=== PATIENT | female | born 1960 | race Caucasian/White ===

== ENCOUNTER 2016-11-30 12:10 | Emergency (ER) | payer OTHER ==
[~2016-11-30] VITALS: Ht 167.6 cm; Wt 60.0 kg
[2016-11-30] MEDS ORDERED: SODIUM CHLORIDE 0.9% 1,000 ML IV ONE (12:54)
[2016-11-30] MEDS ORDERED: LORAZEPAM 0.5MG TABLET PO ONE (13:00)
[2016-11-30 13:20] LABS: BASOPHILS % 0.5 % (0.0-2.0); EOSINOPHILS % 0.2 % (0.0-5.0); HEMATOCRIT. 40.7 % (36.0-48.0); HEMOGLOBIN. 13.7 g/dL (12.0-16.0); LYMPHOCYTES % 13.7 % (20.0-50.0); MEAN CORPUSCULAR HEMOGLOBIN 31.2 pg (28.0-32.0); MEAN CORPUSCULAR HGB CONC 33.6 g/dL (31.0-37.0); MEAN CORPUSCULAR VOLUME 92.8 fL (81.0-99.0); MEAN PLATELET VOLUME 8.4 fl (7.4-10.4); MONOCYTES % 3.3 % (2.0-8.0); NEUTROPHILS % 82.3 % (40.0-76.0); PLATELET 229 x1000/uL (130-400); RED BLOOD CELL COUNT 4.39 mill/uL (4.2-5.4); RED CELL DISTRIBUTION WIDTH 14.4 % (11.6-14.6); WHITE BLOOD COUNT 7.3 x1000/uL (4.5-11.0)
[2016-11-30 13:26] LABS: CHLORIDE 89 mEq/L (98-107); INDEX HEMOLYSI 1 (1-3); INDEX ICTERIC 1 (1-4); INDEX LIPEMIC 1 (1-3)
[2016-11-30 13:27] LABS: PROTHROMBIN TIME 10.6 sec
[2016-11-30 13:35] LABS: ALANINE AMINOTRANSFERASE 38 IU/L (13-61); ALBUMIN 3.3 g/dL (3.4-5.0); ANION GAP 18; CALCIUM 8.3 mg/dL (8.5-10.1); CARBON DIOXIDE 23 mEq/L (21-32); UREA NITROGEN BLOOD 12 mg/dL (7-21); eGFR > 60 mL/min (>60)
[2016-11-30] MEDS ORDERED: POTASSIUM CHLORIDE 40MEQ/30ML UDC PO ONE (14:00)
[2016-11-30] MEDS ORDERED: POTASSIUM CHLORIDE 20MEQ/15ML UDC PO ONE (14:00)
[2016-11-30] MEDS ORDERED: POTASSIUM CHLORIDE 20MEQ TABLET SR PO NR (15:00)
[2016-11-30 16:07] LABS: CLARITY URINE CLEAR (CLEAR); COLOR URINE YELLOW (YELLOW); GLUCOSE URINE NEGATIVE (NEGATIVE); KETONES URINE NEGATIVE (NEGATIVE); LEUKOCYTE ESTERASE URINE NEGATIVE (NEGATIVE); NITRITE URINE NEGATIVE (NEGATIVE); OCCULT BLOOD URINE TRACE (NEGATIVE); PROTEIN URINE NEGATIVE (NEGATIVE); SPECIFIC GRAVITY URINE 1.005 (1.005-1.030); UROBILINOGEN URINE 0.2 E.U./dL (0.2-1.0)
[2016-11-30 16:50] VITALS: BP 115/65
[2016-11-30 16:50] LABS: BACTERIA URINE TRACE; RBC URINE 0-2 /hpf (0-2); SQUAMOUS EPITHELIAL CELL URINE FEW /lpf (RARE/1+); WBC URINE 0-2 /hpf (0-2)
== END 2016-11-30 17:03 | disposition home or self-care (01) ==
LOC: ER 12:32
DX: R51 Headache (principal); E87.6 Hypokalemia; Z90.710 Acquired absence of both cervix and uterus
CPT/HCPCS: 36415; 70450; 80053; 81001; 85025; 85610; 93005; 96360; 96361; 99285; J7030; Z7610